=== PATIENT | male | born 1980 | race Caucasian/White ===

== ENCOUNTER 2016-12-14 05:41 | Day surgery (SDC) | payer OTHER ==
[~2016-12-14] VITALS: Ht 177.8 cm; Wt 104.4 kg
[2016-12-14] VITALS (12 sets, daily range): BP systolic 128–160; BP diastolic 45–102; PULSE 68–97; RESP 13–18; O2SAT 93–100
[~2016-12-14 05:41] MED LIST: Lactated Ringer's 1,000 ML IV ONE
[2016-12-14] MEDS ORDERED: Ondansetron 2 mg/mL 2 mL Inj ONE (05:42)
[2016-12-14] MEDS ORDERED: Rocuronium 10 mg/mL 5 mL Inj ONE (05:42)
[2016-12-14] MEDS ORDERED: Succinylcholine Chloride 20 mg/mL 5 mL Inj ONE (05:42)
[2016-12-14] MEDS ORDERED: Neostigmine 1 mg/mL 5 mL Inj ONE (05:42)
[2016-12-14] MEDS ORDERED: Dexamethasone 4 mg/mL Inj ONE (05:42)
[2016-12-14] MEDS ORDERED: Glycopyrrolate 0.2 MG/ML 1mL Inj ONE (05:42)
[2016-12-14] MEDS ORDERED: EPHEDrine/NS 5 mg/mL 5 mL Syringe ONE (05:42)
[2016-12-14] MEDS ORDERED: Propofol 10,000 mCg/mL 20 mL Inj ONE (05:42)
[2016-12-14] MEDS ORDERED: fentaNYL-PF 50 mCg/mL 2 mL Inj ONE (05:42)
[2016-12-14] MEDS ORDERED: Lactated Ringer's 1,000 ML IV SCH ×2 (06:00→07:35)
[2016-12-14] MEDS ORDERED: Dexamethasone Inj 20 MG in Dextrose 5%-Pha MIX 50 ML IV ONE (06:00)
[2016-12-14] MEDS ORDERED: EPHEDrine Sulfate 50 mg/mL Inj IVPUSH PRN (07:35)
[2016-12-14] MEDS ORDERED: Atropine 0.4 mg/mL Inj IVPUSH PRN (07:35)
[2016-12-14] MEDS ORDERED: Ondansetron 2 mg/mL 2 mL Inj IVPUSH PRN (07:35)
[2016-12-14] MEDS ORDERED: fentaNYL-PF 50 mCg/mL 2 mL Inj IVPUSH PRN (07:35)
[2016-12-14] MEDS ORDERED: Dexamethasone 4 mg/mL Inj IVPUSH PRN (07:35)
[2016-12-14] MEDS ORDERED: Phenylephrine 10,000 mCg/mL Inj IVPUSH PRN (07:35)
[2016-12-14] MEDS ORDERED: MetoCLOpramide 5 mg/mL 2 mL Inj IVPUSH PRN (07:35)
[2016-12-14] MEDS ORDERED: Lactated Ringer's 500 ML IV PRN (07:35)
--- NOTE | 2016-12-14 07:35 | PCM.HPANE ---
Patient Data Surgeon Admitting Provider: Attending Provider:Regan Jacobs MD Primary Care Physician:Papo Other Provider:Nathan Najera Anesthesia Reason for Visit Tonsillitis, Hypertrophy Tonsils Ht/WT & BMI Height (Feet): 5 Height (Inches): 10.00 Weight (Kilograms): 104.4 Body Mass Index 32.00 Allergies Coded Allergies: No Known Allergies (Unverified , 12/07/16) Past Anesthesia History Anesthesia History: Denies:: Anesthesia Reactions (no prior surgery), Difficult Intubation, Fam Anesthesia Reaction Diabetes History Hx Diabetes?: No MRSA MRSA: No Medications Hypertension Medication: No Home Meds Incl Beta Nohemi: No No Active Prescriptions or Reported Meds History History of ENT Problems?: Yes HEENT History: Positive for:: Sinus Problem Denies:: Difficult Intubation Dysphagia Hearing Problem TMJ Denture Type: None Teeth Condition: Within Normal Limits Hx of Heart Problems?: No Cardiovascular History: Denies:: AICD Abdominal Aortic Aneurism Atrial Fibrillation Cardiac Surgery Coronary Artery Disease Edema Heart Murmur Hypertension Irregular Heartbeat Pacemaker Peripheral Vascular Rheumatic Fever Hx of Respiratory Problem?: Yes Respiratory History: Positive for:: Use of C-PAP Machine Denies:: Asthma COPD Emphysema Oxygen Administration Pneumonia Tuberculosis Use of Inhalers / NEBS Hx Neurologic Problems?: No Neurological History: Denies:: CVA Dizziness Headaches Multiple Sclerosis Parkinson's Disease Seizures TIA Hx of GI Problems?: No Hx of Problems?: No Genitourinary History: Denies:: Kidney Stones Urinary Tract Infection Male Hx: Denies:: Prostate Problems Skin History: Denies:: History Skin Disorders? Pressure Ulcers Hx Musculoskeletal Problems?: No Musculoskeletal History: Denies:: Degenerative Joint Fibromyalgia Joint Replacement Musculoskeletal Trauma Myasthenia Gravis Osteoarthritis Rheumatoid Arthritis Hx of Psycho/Social Problems?: No Psycho Social History: Denies:: Anxiety Hx Depression Hx Surgeries?: No (no prior surgery) Hx Any Other Health Problems?: Yes Other History: Denies:: Cancer Thyroid Disease History Blood Transfusions: Positive for:: Accept Blood Products? Denies:: Blood Transfusions Hx Diabetes: No Hx Alcohol Use: NoHx Substance Use: NoHave You Smoked inLast 12 mo: No Stop/Bang S-Snoring: Do You Snore Loudly: Yes T-Tired: feel tired, fatigued: No O-Obsered: Observed not breath: Yes P-Blood Pressure: treated: No B- Body Mass Index > 35 kg/m2: Yes A- Age over 50: No N- Neck Large Circumference: No G- Gender Male: Yes ADAN Total Score: 4 ADAN Risk Assessment: High Risk, =/>3 Yes ADAN Category 4 OutPt Procedure: Yes Risk Assessment Category Category 1A: Patient has history of documented sleep apnea, and HAS NOT received any narcotic, sedative or anesthesia administration during this stay. Category 1B: Patient has history of documented sleep apnea, and HAS received any narcotic , sedative or anesthesia administration during this stay Category 2: Patient has SUSPECTED Obstructive Sleep Apnea, and HAS received any narcotic , sedative or anesthesia administration during this stay. Category 3: Patient has SUSPECTED Obstructive Sleep Apnea and HAS NOT received narcotic, sedative or anesthesia administration during this stay. Category 4: Outpatient in Procedural Areas with known sleep apnea or who screen positive for High Risk via the STOP/BANG questionnaire. Exam Exam Vital Signs Vital Signs Date Time Temp Pulse Resp B/P Pulse Ox O2 Delivery O2 Flow Rate FiO2 12/14/16 06:08 CPAP/BIPAP 12/14/16 06:08 36.6 79 18 142/102 General Appearance: Alert HEENT/AIRWAY: MP 3, Neck Movement (FROM, 3 FB) Lungs: Clear to Auscultation Heart: Regular Rate/Rhythm Meds/Labs/Diagnostics Admission Meds Current Medications Lactated Ringer's (Lr) 1,000 ml @ 120 mls/hr [id number] ONCE IV Last administered on 12/14/16t 05:46; Start 12/14/16 at 05:00; Stop 12/14/16 at 13:19 Plan Impression Patient chart reviewed, patient interviewed and anesthestic plan with risks, benefits, and alternatives discussed, and informed consent obtained. ASA Physical Status: ASA2 Mod Systemic Disease Anesthetic Plan: GA Bene/Risks/Altern/Consents: Yes HP Complete Prior to Induction: Yes Other Discussed GETA. All questions were answered and patient agrees to proceed. Anuel Olea MD Dec 14, 2016 06:56
[2016-12-14] MEDS ORDERED: Bismuth Subgallate Powder 25 Gm TOPICAL ONE (07:36)
[2016-12-14] MEDS ORDERED: Bupivacaine-MPF 0.5% W/EPI 30 mL Inj INJ ONE (07:36)
[2016-12-14] MEDS ORDERED: Lidocaine 1%-Epi 1:100,000 20 mL Inj INJ ONE (07:36)
[2016-12-14] MEDS: HYDROmorphone 1 mg/mL Inj IVPUSH PRN ×2 (08:36→08:54)
--- NOTE | 2016-12-14 09:16 | PCM.ANEP1 ---
Post Anesthesia PACU Phase 1 Assessment Vital Signs Vital Signs Date Time Temp Pulse Resp B/P Pulse Ox O2 Delivery O2 Flow Rate FiO2 12/14/16 09:00 68 16 133/49 95 Room Air 12/14/16 08:55 70 16 144/67 96 Room Air 12/14/16 08:50 36.6 73 16 147/69 98 Room Air 12/14/16 08:45 73 13 137/76 100 Room Air 12/14/16 08:40 75 15 136/71 100 Simple Mask 8 12/14/16 08:35 74 16 128/45 100 Simple Mask 8 12/14/16 08:30 36.5 75 14 140/63 100 Simple Mask 8 12/14/16 06:08 CPAP/BIPAP 12/14/16 06:08 36.6 79 18 142/102 Anesthetic Administered: GA Level of Alertness: Awake, talking GRIFFIN's with Equal Strength: Yes Pain: Yes Nausea or Vomiting: No CV Function & Hydration Stable: Yes Airway Device: none Oxygen Delivery: Simple Mask Lungs: Clear to Auscultation Dermatome Level: Full Sensation PACU Phase 2 Assessment Complications: No Follow up Care: N/A Patient Instructions Provided: Yes Anuel Olea MD Dec 14, 2016 09:16
[2016-12-14] MEDS ORDERED: HYDROcodone-APAP 7.5-325 mg/15 mL 15 mL Solution ONE (09:29)
--- NOTE | 2016-12-14 10:45 | OP ---
[address] [address] OPERATIVE REPORT PATIENT: BEE VORA : 1980 MR#: [id number] ADMIT: 12/14/2016 JOB ID: [id number] DATE OF SURGERY: 12/14/2016 SURGEON: Regan Jacobs MD PREOPERATIVE DIAGNOSIS(ES): Chronic tonsillitis. POSTOPERATIVE DIAGNOSIS(ES): Chronic tonsillitis. INDICATIONS FOR PROCEDURE: Chronic tonsillitis. OPERATION PERFORMED: Tonsillectomy. OPERATIVE FINDING: Tonsils 3+. No adenoids. OPERATIVE PROCEDURE: With the patient supine on the operating table, general orotracheal anesthesia was used. Tongue and soft palate retracted. Above findings were identified. Bilateral cautery technique tonsillectomy performed, bismuth paste for hemostasis, 2-0 chromic sutures were used throughout to add hemostasis and closed the tonsil fossa. The tip of the uvula was excised as it was excessively long and obstructing his breathing and he had sleep apnea. Procedure terminated. Patient turned over to anesthesia for emergence from anesthetics without known complications.
== END 2016-12-14 23:59 | disposition home or self-care (01) ==
LOC: SAS 05:41
PROVIDERS: ATTEND Otolaryngology Facial Plastic Surgery
DX: J35.01 Chronic tonsillitis (principal); G47.30 Sleep apnea, unspecified
CPT/HCPCS: 42826; J0330; J1100; J1170; J2250; J2405; J2710; J3010; J7120